=== PATIENT | male | born 1955 | race Caucasian/White ===

== ENCOUNTER 2016-09-19 17:21 | Emergency (ER) | payer BC ==
[2016-09-19 19:37] VITALS: BP 115/71
--- NOTE | 2016-09-19 19:53 | EDM.PDOC ---
ED HPI GENERAL MEDICAL PROBLEM - General Chief Complaint: Lower Extremity Injury/Pain Stated Complaint: FELL AND SIDE SWOLLEN AND PAINFUL, [id number] Time Seen by Provider: 09/19/16 19:48 Source of Information: Reports: Patient History Limitations: Reports: No Limitations - History of Present Illness INITIAL COMMENTS - FREE TEXT/NARRATIVE: fell ~ 4pm, got back up by self, denies head/neck injury or pain. only pain left hip area but it's now getting better with decrease swelling. Left Hip Pain Score (Numeric/FACES): 6 - Related Data Allergies Allergy/AdvReac Type Severity Reaction Status Date / Time acetaminophen Allergy Cannot Verified 09/19/16 18:37 [From Darvocet-N] Remember itraconazole Allergy Cannot Verified 09/19/16 18:37 Remember propoxyphene Allergy Cannot Verified 09/19/16 18:37 [From Darvocet-N] Remember Home Meds: Home Meds Adalimumab [Humira] 20 mg SQ 09/19/16 [History] Calcium Carbonate [Calcium] 1 tab PO DAILY 09/19/16 [History] Folic Acid [Folic Acid] 1 tab PO DAILY 09/19/16 [History] Gluc 2KCl/Chondr/Madiha Hy/Hy Ac [Glucosamine & Chondroitin Cap] 1 tab PO BID [History] Lisinopril 10 mg PO DAILY 09/19/16 [History] Methotrexate [Methotrexate] 0.8 ml IM WEEKLY 09/19/16 [History] atorvaSTATin [Lipitor] 10 mg PO DAILY 09/19/16 [History] predniSONE [Prednisone] 5 mg PO DAILY 09/19/16 [History] traMADol [Ultram] 50 mg PO Q6H PRN 09/19/16 [History] Past Medical History Cardiovascular History: Reports: High Cholesterol Musculoskeletal History: Reports: RA Immunologic History: Reports: Immunosuppression, Other (See Below) Other Immunologic History: on Humira Social & Family History - Tobacco Use Smoking Status *Q: Never Smoker - Recreational Drug Use Recreational Drug Use: No Review of Systems - Review of Systems Review Of Systems: ROS reveals no pertinent complaints other than HPI. ED EXAM, GENERAL - Physical Exam Exam: See Below Exam Limited By: No Limitations General Appearance: Alert, WD/WN, No Apparent Distress Ears: Hearing Grossly Normal Throat/Mouth: Normal Voice, No Airway Compromise Head: Atraumatic Neck: Non-Tender, Full Range of Motion Respiratory/Chest: No Respiratory Distress Cardiovascular: Regular Rate, Rhythm GI/Abdominal: Soft, Non-Tender Back Exam: Normal Inspection Extremities: Other (left hip no gross D/D, LLE NV wnl, ) Neurological: Alert, Oriented, Normal Cognition, Normal Gait, No Motor/Sensory Deficits Psychiatric: Normal Affect, Normal Mood Skin Exam: Warm, Dry Lymphatic: No Adenopathy Course - Vital Signs Last Recorded V/S: Last Vital Signs Temp 36.9 C 09/19/16 19:36 Pulse 84 09/19/16 18:00 Resp 14 09/19/16 19:36 BP 115/71 09/19/16 19:36 Pulse Ox 99 09/19/16 19:36 - Orders/Labs/Meds Orders: Active Orders 24 hr Category Date Time Status Hip Min 1V w Pelvis Lt [CR] Stat Exams 09/19/16 18:13 Taken Departure - Departure Time of Disposition: 19:51 Disposition: Home, Self-Care 01 Condition: Good Clinical Impression: Contusion of hip - Discharge Information Instructions: Contusion, [id number] Forms: ED Department Discharge Additional Instructions: 1) rest and avoid bending lifting straining next 48 hours 2) recheck if there is any change or concern.
== END 2016-09-19 19:57 | disposition home or self-care (01) ==
LOC: DL.ED 17:21
DX: S70.02XA Contusion of left hip, initial encounter (principal); E78.00 Pure hypercholesterolemia, unspecified; M06.9 Rheumatoid arthritis, unspecified; Z79.899 Other long term (current) drug therapy; Z88.8 Allergy status to other drugs, medicaments and biological substances; W19.XXXA Unspecified fall, initial encounter
CPT/HCPCS: 99283

== ENCOUNTER 2017-02-04 19:50 | Emergency (ER) | payer BC ==
[2017-02-04 20:10] VITALS: BP 124/92
--- NOTE | 2017-02-04 20:26 | EDM.PDOC ---
ED HPI GENERAL MEDICAL PROBLEM - General Chief Complaint: Back Pain or Injury Stated Complaint: FELL 02/04/17 Time Seen by Provider: 02/04/17 20:22 History Limitations: Reports: No Limitations - History of Present Illness INITIAL COMMENTS - FREE TEXT/NARRATIVE: 61 yo white male fell onto steps this 7 AM c/o right low back and right elbow pain. PMHx. Rheumatoid Arthritis Pt. take Tramadol and took two since fall. Pt. denies head trauma and no LOC Onset: Today Onset Date: 02/04/17 Onset Time: 08:00 Duration: Hour(s): Location: Reports: Back, Upper Extremity, Right Quality: Reports: Ache Severity: Moderate Improves with: Reports: Rest Worsens with: Reports: Movement Context: Reports: Trauma (slipped on to one step) Associated Symptoms: Reports: No Other Symptoms Treatments ISSUER: Reports: Other Medication(s) Right Lower Back Pain Score (Numeric/FACES): 6 Right Elbow Pain Score (Numeric/FACES): 6 - Related Data Allergies Allergy/AdvReac Type Severity Reaction Status Date / Time acetaminophen Allergy Cannot Verified 02/04/17 20:09 [From Darvocet-N] Remember itraconazole Allergy Cannot Verified 02/04/17 20:09 Remember propoxyphene Allergy Cannot Verified 02/04/17 20:09 [From Darvocet-N] Remember Home Meds: Home Meds Adalimumab [Humira] 40 mg SQ ASDIRECTED 09/19/16 [History] Calcium Carbonate [Calcium] 1 tab PO DAILY 09/19/16 [History] Folic Acid [Folic Acid] 1 tab PO DAILY 09/19/16 [History] Gluc 2KCl/Chondr/Madiha Hy/Hy Ac [Glucosamine & Chondroitin Cap] 1 tab PO BID [History] Lisinopril 10 mg PO DAILY 09/19/16 [History] Methotrexate [Methotrexate] 0.8 ml IM WEEKLY 09/19/16 [History] atorvaSTATin [Lipitor] 10 mg PO DAILY 09/19/16 [History] predniSONE [Prednisone] 5 mg PO DAILY 09/19/16 [History] traMADol [Ultram] 50 mg PO Q6H PRN 09/19/16 [History] Eszopiclone [Eszopiclone] 10/19/16 [History] Past Medical History HEENT History: Reports: None Cardiovascular History: Reports: High Cholesterol, Hypertension Respiratory History: Reports: None Gastrointestinal History: Reports: GERD Genitourinary History: Reports: None Musculoskeletal History: Reports: RA Neurological History: Reports: None Psychiatric History: Reports: None Endocrine/Metabolic History: Reports: None Hematologic History: Reports: None Immunologic History: Reports: Immunosuppression, Other (See Below) Other Immunologic History: on Humira Oncologic (Cancer) History: Reports: None Dermatologic History: Reports: None - Infectious Disease History Infectious Disease History: Reports: None - Past Surgical History HEENT Surgical History: Reports: None Respiratory Surgical History: Reports: None GI Surgical History: Reports: None Male Surgical History: Reports: None Endocrine Surgical History: Reports: None Neurological Surgical History: Reports: None Musculoskeletal Surgical History: Reports: Other (See Below) Other Musculoskeletal Surgeries/Procedures:: fingers of right hand reattached in 1993 Oncologic Surgical History: Reports: None Dermatological Surgical History: Reports: None Social & Family History - Tobacco Use Smoking Status *Q: Never Smoker - Caffeine Use Caffeine Use: Reports: Coffee - Recreational Drug Use Recreational Drug Use: No ED ROS GENERAL - Review of Systems Review Of Systems: See Below Constitutional: Reports: No Symptoms HEENT: Reports: No Symptoms Respiratory: Reports: No Symptoms Cardiovascular: Reports: No Symptoms Endocrine: Reports: No Symptoms GI/Abdominal: Reports: No Symptoms : Reports: No Symptoms Musculoskeletal: Reports: Back Pain (low back mainly on right), Joint Pain ( right elbow) Skin: Reports: Bruising (right low back) Neurological: Reports: No Symptoms Psychiatric: Reports: No Symptoms Hematologic/Lymphatic: Reports: No Symptoms Immunologic: Reports: No Symptoms ED EXAM, GENERAL - Physical Exam Exam: See Below Exam Limited By: No Limitations General Appearance: Alert, WD/WN, No Apparent Distress Eye Exam: Bilateral Eye: EOMI, PERRL Ears: Normal External Exam Nose: Normal Inspection Throat/Mouth: Normal Inspection Head: Atraumatic, Normocephalic Neck: Normal Inspection, Supple, Non-Tender, Full Range of Motion Respiratory/Chest: No Respiratory Distress, Lungs Clear Cardiovascular: Normal Peripheral Pulses, Regular Rate, Rhythm, No Edema Peripheral Pulses: 2+: Radial (L), Radial (R), Dorsalis Pedis (L), Dorsalis Pedis (R) GI/Abdominal: Normal Bowel Sounds Back Exam: Normal Inspection, Full Range of Motion, Other (right lower back w/ tenderness and some bruising) Extremities: Normal Inspection, Normal Range of Motion Neurological: Alert, Oriented, CN II-XII Intact Psychiatric: Normal Affect, Normal Mood Skin Exam: Warm, Intact, Ecchymosis (right low back) Lymphatic: No Adenopathy Course - Vital Signs Last Recorded V/S: Last Vital Signs Temp 37.0 C 02/04/17 20:08 Pulse 86 02/04/17 20:08 Resp 16 02/04/17 20:08 BP 124/92 H 02/04/17 20:08 Pulse Ox Departure - Departure Time of Disposition: 21:15 Disposition: Home, Self-Care 01 Condition: Good Clinical Impression: Fall (on) (from) other stairs and steps, initial encounter Contusion of back Qualifiers: Encounter type: initial encounter Laterality: unspecified laterality Qualified Code(s): S20.229A - Contusion of unspecified back wall of thorax, initial encounter Contusion of elbow, right Qualifiers: Encounter type: initial encounter Qualified Code(s): S50.01XA - Contusion of right elbow, initial encounter - Discharge Information Instructions: Back Pain, Adult, [id number] Referrals: Dior Landon, [employer] [Primary Care Provider] - Forms: ED Department Discharge Additional Instructions: Rest Apply Ice Pack to areas of Pain TID X 15 mins. Take your prescribed pain medications as ordered F/U w/ PCP
== END 2017-02-04 21:23 | disposition home or self-care (01) ==
LOC: DL.ED 19:50
DX: S50.01XA Contusion of right elbow, initial encounter (principal); S30.0XXA Contusion of lower back and pelvis, initial encounter; I10 Essential (primary) hypertension; E78.00 Pure hypercholesterolemia, unspecified; Z79.899 Other long term (current) drug therapy; Z88.8 Allergy status to other drugs, medicaments and biological substances; Z88.6 Allergy status to analgesic agent; W10.8XXA Fall (on) (from) other stairs and steps, initial encounter
CPT/HCPCS: 72100; 73070-RT; 99283

== ENCOUNTER 2019-05-08 08:27 | Day surgery (SDC) | payer BC ==
[~2019-05-08 08:27] MED LIST: Bupivacaine 0.5%/EPINEPHrine 1:200,000 10 ML SDV ONE; Lactated Ringers 1,000 ML IV SCH
[2019-05-08] MEDS ORDERED: ceFAZolin 2 GM in Premix Bag 1 BAG IV ONE (08:30)
[2019-05-08] MEDS ORDERED: Bupivacaine 0.5%/EPINEPHrine 1:200,000 10 ML SDV INJECT ONE ×2 (10:00→10:06)
[2019-05-08] MEDS ORDERED: Bupivacaine 0.5%/EPINEPHrine 1:200,000 10 ML SDV ONE (10:02)
[2019-05-08] MEDS ORDERED: Acetaminophen/oxyCODONE 325-5 MG Tab PO ONE (12:04)
[2019-05-08] MEDS ORDERED: Morphine 2 MG/ML Syringe IVPUSH PRN (14:54)
[2019-05-08] MEDS ORDERED: Ondansetron 4 MG/2 ML SDV IVPUSH PRN (14:54)
--- NOTE | 2019-05-08 17:25 | OR ---
DATE: 05/08/2019 PREOPERATIVE DIAGNOSIS: Right inguinal hernia. POSTOPERATIVE DIAGNOSIS: Right inguinal hernia (indirect). ANESTHESIA: General. ESTIMATED BLOOD LOSS: Minimum. SPECIMEN: None. INDICATION FOR PROCEDURE: This 63-year-old male has a moderate-sized right inguinal hernia on physical exam. PROCEDURE IN DETAIL: After adequate preparation, a transverse incision was made over the right groin and carried down through the external oblique to reveal the inguinal floor and the spermatic cord. He did indeed have a moderate amount of omentum within the hernia sac. This was dissected free, the sac from the cord, and the contents of the hernia were reduced. A Prolene suture was used to ligate the hernia sac at the deep inguinal ring and the distal sac was amputated. Some of the surrounding cord lipoma structures were also taken off. A precut piece of Prolene mesh was used to buttress the inguinal floor. This was sewn in place using a 0 Prolene suture along the inguinal ligament in a running fashion and interrupted Prolene sutures for the superior flap. The tails were crossed laterally to the cord structures and the external oblique was then oversewn over the cord after it was replaced in the canal. Vicryl was used for the subcutaneous tissue and Monocryl for the skin. [facility] /[id number]
[2019-05-08] MEDS: Acetaminophen/oxyCODONE 325-5 MG Tab PO PRN (22:30)
[2019-05-08] MEDS: Sodium Chloride 0.9% 10 ML Syringe FLUSH PRN ×2 (22:33→22:41)
[2019-05-09] MEDS: Acetaminophen/oxyCODONE 325-5 MG Tab PO PRN ×2 (03:30→09:35)
[2019-05-09 07:42] VITALS: BP 94/58; PULSE 52
--- NOTE | 2019-05-09 08:41 | PCM.SN ---
- Free Text/Narrative Note: Stable POD #1. Pain moderate but controlled. Wound clean and dry. Post operative femoral nerve block from lidocaine injection has resolved. Gait and leg function normal. PO adequate. Can discharge now. Return to my clinic in May if has any questions. Percocet #30 given for pain. No restrictions and diet or activity.
== END 2019-05-09 10:15 | disposition home or self-care (01) ==
LOC: DL.SDS 08:27 → DL.MS 14:55 → DL.SDS 05-09 10:15
PROVIDERS: ATTEND Surgery
DX: K40.90 Unilateral inguinal hernia, without obstruction or gangrene, not specified as recurrent (principal); G89.18 Other acute postprocedural pain
CPT/HCPCS: 49505; 64447; 93005; A9270; J0690; J2405; J3490; J7120; C1781